=== PATIENT | male | born 1985 | race Caucasian/White ===

== ENCOUNTER 2021-12-14 20:58 | Emergency (ER) | payer MEDICAID ==
[~2021-12-14] VITALS: Ht 180.3 cm; Wt 86.4 kg
[2021-12-14 21:00] VITALS: BP 135/72
== END 2021-12-14 22:10 ==
LOC: ER 20:59
DX: X58.XXXA Exposure to other specified factors, initial encounter; Y93.89 Activity, other specified; Y92.89 Other specified places as the place of occurrence of the external cause; Y99.8 Other external cause status
CPT/HCPCS: 99283

== ENCOUNTER 2024-04-14 00:05 | Emergency (ER) | payer MEDICAID, BC ==
[~2024-04-14] VITALS: Ht 180.3 cm; Wt 70.8 kg
[2024-04-14 00:13] VITALS: TEMP 98.1
[2024-04-14] MEDS ORDERED: NO HOME MEDS (00:47)
[2024-04-14 00:48] VITALS: BP 123/74; PULSE 78; RESP 14; O2SAT 99
[2024-04-14] MEDS: mupirocin 2% ointment 22GM TP STA (01:08)
== END 2024-04-14 01:16 | disposition home or self-care (01) ==
LOC: ER 00:06
DX: S00.571A Other superficial bite of lip, initial encounter (principal); W50.3XXA Accidental bite by another person, initial encounter; Y93.89 Activity, other specified; Y92.89 Other specified places as the place of occurrence of the external cause; Y99.8 Other external cause status
CPT/HCPCS: 99282